=== PATIENT | female | born 1990 | race Caucasian/White ===

== ENCOUNTER 2020-11-08 22:38 | Emergency (ER) | payer MEDICAID ==
[~2020-11-08] VITALS: Ht 165.1 cm; Wt 85.0 kg
[2020-11-08] MEDS ORDERED: TRAMADOL HCL50 MG PO (23:31)
[2020-11-08 23:59] VITALS: BP 126/75
== END 2020-11-09 | disposition home or self-care (01) ==
LOC: ED 22:38
DX: S52.122A Displaced fracture of head of left radius, initial encounter for closed fracture (principal); S60.512A Abrasion of left hand, initial encounter; S60.511A Abrasion of right hand, initial encounter; S80.212A Abrasion, left knee, initial encounter; S80.211A Abrasion, right knee, initial encounter; W01.0XXA Fall on same level from slipping, tripping and stumbling without subsequent striking against object, initial encounter; Y92.009 Unspecified place in unspecified non-institutional (private) residence as the place of occurrence of the external cause

== ENCOUNTER 2023-02-17 19:49 | Emergency (ER) | payer BC ==
[~2023-02-17] VITALS: Ht 165.1 cm; Wt 90.0 kg
[~2023-02-17 19:49] MED LIST: TRAMADOL HCL50 MG PO
[2023-02-17] MEDS ORDERED: ULTRAM50 MG PO (21:52)
[2023-02-17 22:09] VITALS: BP 131/81
== END 2023-02-17 22:10 | disposition home or self-care (01) | DRG 563 ==
LOC: ED 19:49
DX: S83.91XA Sprain of unspecified site of right knee, initial encounter (principal); X50.0XXA Overexertion from strenuous movement or load, initial encounter